=== PATIENT | female | born 1995 | race Caucasian/White ===

== ENCOUNTER 2019-10-29 22:12 | Emergency (ER) | payer MEDICAID ==
[~2019-10-29] VITALS: Ht 165.1 cm; Wt 99.0 kg
[2019-10-29] MEDS ORDERED: PHEN15CA2 PO (22:34)
--- NOTE | 2019-10-29 22:34 | NUR ---
PT SITTING UP ON GURNEY, FAMILY AT BEDSIDE, SANDRAIOTRS APPLIED, CALL LIGHT WITHIN REACH. AWAITING XRAY
[2019-10-29 23:28] VITALS: BP 151/98
--- NOTE | 2019-10-29 23:28 | NUR ---
PROVIDED PT WITH CRUTCHES, WENT OVER INSTRUCTIONS ON CRUTCH USE, PT DEMONSTRATED USE WITHOUT DIFFICULTY
== END 2019-10-29 23:40 | disposition home or self-care (01) ==
LOC: ED 23:30
DX: M25.562 Pain in left knee (principal); F17.200 Nicotine dependence, unspecified, uncomplicated
CPT/HCPCS: 99283